=== PATIENT | female | born 1980 | race Two or more races ===

== ENCOUNTER 2018-04-16 11:13 | Outpatient (CLI) | payer OTHER | END 2018-04-16 23:59 | disposition home or self-care (01) | LOC: WOU 11:13 | PROVIDERS: ATTEND Surgery | DX: N63.0 Unspecified lump in unspecified breast (principal); R92.8 Other abnormal and inconclusive findings on diagnostic imaging of breast; Z87.891 Personal history of nicotine dependence; Z80.8 Family history of malignant neoplasm of other organs or systems; Z80.9 Family history of malignant neoplasm, unspecified | CPT/HCPCS: 99205; A6402; G0463 ==

== ENCOUNTER 2018-05-07 11:00 | Outpatient (CLI) | payer OTHER | END 2018-05-07 23:59 | disposition home or self-care (01) | LOC: WOU 11:00 | PROVIDERS: ATTEND Surgery | PROC: 0HBT3ZX Excision of Right Breast, Percutaneous Approach, Diagnostic (ICD-10-PCS; principal; 2018-05-07) | DX: N63.0 Unspecified lump in unspecified breast (principal); R92.8 Other abnormal and inconclusive findings on diagnostic imaging of breast; Z87.891 Personal history of nicotine dependence | CPT/HCPCS: 19100; 88305; J3490; A6402 ==

== ENCOUNTER 2018-05-14 11:20 | Outpatient (CLI) | payer OTHER | END 2018-05-14 23:59 | disposition home or self-care (01) | LOC: WOU 11:20 | PROVIDERS: ATTEND Surgery | DX: N63.0 Unspecified lump in unspecified breast (principal); R92.8 Other abnormal and inconclusive findings on diagnostic imaging of breast; Z87.891 Personal history of nicotine dependence | CPT/HCPCS: G0463 ==